=== PATIENT | female | born 1945 | race Caucasian/White ===

== ENCOUNTER 2017-11-03 08:50 | Emergency (ER) | payer MEDICARE, OTHER ==
[~2017-11-03] VITALS: Ht 149.9 cm; Wt 52.7 kg
[~2017-11-03 08:50] MED LIST: COZAAR; FOSAMAX; HYDROCHLOROTHIAZIDE; LOMOTIL; LOSARTAN; RANITIDINE; TEMAZEPAM; [UNRECOGNIZED DRUG - OTHER]; [UNRECOGNIZED DRUG - OTHER]; [UNRECOGNIZED DRUG - REMARK]
[2017-11-03 08:52] VITALS: Ht 149.9 cm; Wt 52.7 kg
[2017-11-03] MEDS ORDERED: ACETAMINOPHEN 325 MG TAB PO ONE (09:30)
--- NOTE | 2017-11-03 09:32 | ERD ---
ER Documentation Chief Complaint Chief Complaint Cough, fever HPI 72-year-old female history of hypertension presents with her daughter for history of cough, fever for a week now. Patient was seen by her primary care physician and was given a prescription for Keflex, as well as Tessalon Perles and albuterol. She states that the fever started on and off for the last 3 days, she has had a dry cough with congestion. She is also had rhinorrhea with sore throat. She denies chest pain, shortness of breath, hemoptysis. ROS All systems reviewed and are negative except as per history of present illness. Medications Home Meds Active Scripts Levofloxacin* (Levaquin*) 750 Mg Tablet, 750 MG PO DAILY for 5 Days, TAB Prov:MARILIN CENTENO PA-C 11/03/17 Reported Medications [Family Hs No Dosages And Time For Meds] No Conflict Check 02/09/13 [Ranitidine] No Conflict Check 02/09/13 [Desyperamide] No Conflict Check 02/09/13 [Temazepam] No Conflict Check 02/09/13 [Fosamax] No Conflict Check 02/09/13 [Hydrochlorothiazide] No Conflict Check 02/09/13 [Alkaselzer] No Conflict Check 02/09/13 [Lomotil] No Conflict Check 02/09/13 [Losartan] No Conflict Check 02/09/13 [Cozaar] No Conflict Check 02/09/13 Allergies Allergies: Coded Allergies: No Known Drug Allergy (Verified Allergy, Unknown, 12/07/13) PMhx/Soc History of Surgery: No Anesthesia Reaction: No Hx Neurological Disorder: No Hx Respiratory Disorders: No Hx Cardiac Disorders: Yes (HTN (ACCORDING TO FAMILY MEMBER), cholesterol) Hx Psychiatric Problems: No Hx Miscellaneous Medical Probl: Yes (GASTRITIS ; MIGRAINES) Hx Alcohol Use: No Hx Substance Use: No Hx Tobacco Use: No Smoking Status: Never smoker Physical Exam Vitals Vital Signs Date Time Temp Pulse Resp B/P Pulse Ox O2 Delivery O2 Flow Rate FiO2 11/03/17 08:52 101.0 88 18 127/61 96 Physical Exam General: Elderly female, nontoxic, no acute distress HEENT: Head is normocephalic, atraumatic. No scleral icterus. Pupils are equal , round, and reactive. Oral mucous membranes are moist. TMs are clear normal. No pharyngeal erythema. Neck: Supple. Nontender. Lungs: Clear to auscultation. Normal air movement. Nonlabored. Heart: Regular rate and rhythm. S1 and S2 are normal. No murmurs, gallops, or rubs. Abdomen: Soft, nontender, nondistended. Bowel sounds are normoactive. Extremities: No clubbing or cyanosis. Normal pulses. Moving extremities x 4. No weakness. Neurologic: Alert and oriented 3. No focal deficits. Skin: Normal turgor. No rash or lesions. Result Diagram: 11/03/1792211/03/17922 Results 24 hrs Laboratory Tests Test 11/03/17 09:23 11/03/17 09:40 White Blood Count 5.910^3/ul Red Blood Count 4.3710^6/ul Hemoglobin 12.9g/dl Hematocrit 38.4% Mean Corpuscular Volume 87.9fl Mean Corpuscular Hemoglobin 29.5pg Mean Corpuscular Hemoglobin Concent 33.6g/dl Red Cell Distribution Width 14.0% Platelet Count 87748^3/UL Mean Platelet Volume 10.3fl Neutrophils % 65.2% Lymphocytes % 19.9% Monocytes % 13.9% Eosinophils % 0.2% Basophils % 0.3% Nucleated Red Blood Cells % 0.0/100WBC Neutrophils # 3.810^3/ul Lymphocytes # 1.210^3/ul Monocytes # 0.810^3/ul Eosinophils # 0.010^3/ul Basophils # 0.010^3/ul Nucleated Red Blood Cells # 0.010^3/ul Sodium Level 139mmol/L Potassium Level 3.6mmol/L Chloride Level 99mmol/L Carbon Dioxide Level 25mmol/L Anion Gap 19 Blood Urea Nitrogen 14mg/dl Creatinine 0.94mg/dl Glucose Level 113mg/dl Calcium Level 9.5mg/dl Urine Color ELSA Urine Clarity SLIGHTLY CLOUDY Urine pH 5.0 Urine Specific Fowler 1.027 Urine Ketones TRACEmg/dL Urine Nitrite NEGATIVEmg/dL Urine Bilirubin NEGATIVEmg/dL Urine Urobilinogen 1+mg/dL Urine Leukocyte Esterase TRACELeu/ul Urine Microscopic RBC 10/HPF Urine Microscopic WBC 6/HPF Urine Squamous Epithelial Cells FEW/HPF Urine Bacteria FEW/HPF Urine Mucus MANY/HPF Urine Hemoglobin NEGATIVEmg/dL Urine Glucose NEGATIVEmg/dL Urine Total Protein 1+mg/dl Current Medications Medications (Trade) Dose Ordered Sig/Ronni Route PRN Reason Start Time Stop Time Status Last Admin Dose Admin Acetaminophen 650 mg 650 mg ONCE ONCE PO 11/03/17 09:30 11/03/17 09:31 DC 11/03/17 09:47 Ceftriaxone Sodium (Rocephin) 50 ml @ 100 mls/hr ONCE ONCE IVPB 11/03/17 10:30 11/03/17 10:59 11/03/17 10:32 DIAGNOSTIC IMAGING REPORT Patient: JOHN JAIMES : 1945 Age: 72 Sex: F MR #: [id number] DOS: 11/03/17 0908 Ordering MD: MARILIN CENTENO PA-C Location: [facility] Room/Bed: PROCEDURE: XR Chest 1 View. CLINICAL INDICATION: Cough. TECHNIQUE: Single view of the chest was obtained. COMPARISON: CR CHEST 12/07/2013 FINDINGS: The cardiomediastinal silhouette is within normal limits. Calcified granuloma in the right mid lung is stable. Chronic mild interstitial prominence is seen in both lungs. No consolidations are identified. No pneumothorax is seen. Osseous structures are intact. IMPRESSION: Stable calcified granuloma in the right lung. Stable diffuse mild interstitial prominence in both lungs. RPTAT: AA .Timmy Abbasi MD, MD Date Time Electronically viewed and signed by .Timmy Abbasi MD, on 11/03/2017 09:43 .P/ CC: MARILIN CENTENO PA-C Procedures/MDM ED COURSE: Patient was found to be febrile with a temperature 101, she was given Tylenol 650 mg. Recheck of her temperature was 99.1. Patient had a saline lock established, labs as well as a urine analysis and chest x-ray were obtained. Urine analysis shows 6 white blood cells with trace leukocyte esterase despite being on Keflex, given the patient's fever the patient will be treated for UTI with intravenous antibiotics, she received Rocephin 1 g IV. MEDICAL DECISION MAKIN-year-old female currently being treated for a upper respiratory infection by her PCP with Keflex, Tessalon and albuterol comes into the emergency room with a history of fever and cough, the patient has been coughing for approximately a week and developed a fever over the last 3 days. Patient is examination shows clear breath sounds, no wheezing, and she does not present with any acute distress. The patient is currently being treated with Keflex, despite his patient's and her urinalysis still shows signs of infection, therefore urine culture was sent, to treat for cough with fever with UTI the patient received Rocephin 1 g IV, and will be discharged home on Levaquin. The patient was febrile but no tachycardia noted, and there is no leukocytosis, she is extremely well-appearing and nontoxic in appearance, and I believe that the patient is appropriate to be discharged home and treated with oral antibiotics. The patient does not show any signs of respiratory distress, and her vital signs are normal, there is no hypoxia. No leukocytosis, and I doubt sepsis. There is no pneumonia on chest x-ray. At this time I discussed the care with my attending physician, Dr. Canales who agrees with the care plan. Patient's blood pressure was elevated (>120/80) but appears stable without evidence of hypertension emergency or urgency. The patient was counseled about the risks of hypertension and urged to pursue outpatient monitoring and therapy within a week with their primary care physician. Departure Diagnosis: Primary Impression: UTI (urinary tract infection) Additional Impression: Bronchitis Condition: Good MARILIN CENTENO PA-C Nov 03, 2017 09:32
[2017-11-03 09:35] LABS: BASOPHILS % 0.3 % (0.0-2.0); EOSINOPHILS % 0.2 % (0.0-7.0); HEMATOCRIT 38.4 % (37.0-47.0); HEMOGLOBIN 12.9 g/dl (12.0-16.0); LYMPHOCYTES # 1.2 10^3/ul (0.8-2.9); LYMPHOCYTES % 19.9 % (15.0-51.0); MEAN CORPUSCULAR HEMOGLOBIN 29.5 pg (29.0-33.0); MEAN CORPUSCULAR HGB CONC 33.6 g/dl (32.0-37.0); MEAN CORPUSCULAR VOLUME 87.9 fl (82.0-101.0); MEAN PLATELET VOLUME 10.3 fl (7.4-10.4); MONOCYTE # 0.8 10^3/ul (0.3-0.9); MONOCYTES % 13.9 % (0.0-11.0); NEUTROPHIL # 3.8 10^3/ul (1.6-7.5); NEUTROPHILS % 65.2 % (39.0-77.0); PLATELET COUNT 244 10^3/UL (140-415); RED BLOOD COUNT 4.37 10^6/ul (4.20-5.40); WHITE BLOOD COUNT 5.9 10^3/ul (4.8-10.8)
--- NOTE | 2017-11-03 09:43 | RADRPT ---
PROCEDURE: XR Chest 1 View. CLINICAL INDICATION: Cough. TECHNIQUE: Single view of the chest was obtained. COMPARISON: CR CHEST 12/07/2013 FINDINGS: The cardiomediastinal silhouette is within normal limits. Calcified granuloma in the right mid lung is stable. Chronic mild interstitial prominence is seen in both lungs. No consolidations are identif ied. No pneumothorax is seen. Osseous structures are intact. IMPRESSION: Stable calcified granuloma in the right lung. Stable diffuse mild interstitial prominence in both lungs. RPTAT: AA .Timmy Abbasi MD, MD Date Time Electronically viewed and signed by .Timmy Abbasi MD, on 11/03/2017 09:43 .P/
[2017-11-03 09:53] LABS: CALCIUM 9.5 mg/dl (8.4-10.2); CREATININE 0.94 mg/dl (0.44-1.00); POTASSIUM 3.6 mmol/L (3.5-5.1)
[2017-11-03 10:01] LABS: ADD UMIC YES; UR ASCORBIC ACID 40 mg/dL (NEGATIVE); UR BACTERIA FEW /HPF (NONE SEEN); UR BILIRUBIN (Dip) NEGATIVE (NEGATIVE); UR BLOOD (Dip) NEGATIVE (NEGATIVE); UR CLARITY SLIGHTLY CLOUDY (CLEAR); UR COLOR AMBER (YELLOW); UR GLUCOSE (Dip) NEGATIVE (NEGATIVE); UR KETONES (Dip) TRACE mg/dL (NEGATIVE); UR LEUKOCYTE ESTERASE (Dip) TRACE Leu/ul (NEGATIVE); UR MUCUS MANY /HPF (NONE SEEN); UR NITRITE (Dip) NEGATIVE (NEGATIVE); UR NONSQUAMOUS EPITHELIAL CELL 3 /HPF (NONE SEEN); UR RBC 10 /HPF (0-5); UR SPECIFIC GRAVITY (Dip) 1.027 (1.003-1.030); UR SQUAMOUS EPITHELIAL CELL FEW /HPF (FEW); UR TOTAL PROTEIN (Dip) 1+ mg/dl (NEGATIVE); UR UROBILINOGEN (Dip) 1+ mg/dL (NEGATIVE)
[2017-11-03] MEDS ORDERED: LEVO750T25 PO (10:29)
[2017-11-03] MEDS ORDERED: CEFTRIAXONE 1 GM/50 ML (PMX) 50 ML IVPB ONE (10:30)
[2017-11-03 11:29] VITALS: BP 122/58; PULSE 62; RESP 17; TEMP 98.7
== END 2017-11-03 11:36 | disposition home or self-care (01) ==
LOC: FTE 08:50
DX: N39.0 Urinary tract infection, site not specified (principal); J20.9 Acute bronchitis, unspecified; I10 Essential (primary) hypertension
CPT/HCPCS: 36415; 71010; 80048; 81001; 85025; 87086; 87400; 96374; 99284; J0696